=== PATIENT | female | born 2000 | race Caucasian/White ===

== ENCOUNTER 2022-04-06 15:51 | Emergency (ER) | payer OTHER ==
[2022-04-06] MEDS ORDERED: Bacitracin Oint 1 GM U/D Packet TOP ONE (16:03)
== END 2022-04-06 17:03 | disposition home or self-care (01) ==
LOC: FB.ED 15:51
DX: S91.101A Unspecified open wound of right great toe without damage to nail, initial encounter (principal); W26.8XXA Contact with other sharp object(s), not elsewhere classified, initial encounter
CPT/HCPCS: 99281; 99283